=== PATIENT | female | born 1940 | race Caucasian/White ===

== ENCOUNTER 2016-10-12 12:18 | Emergency (ER) | payer MEDICARE ==
[~2016-10-12] VITALS: Ht 165.1 cm; Wt 63.5 kg
[2016-10-12 12:20] VITALS: BP 126/86; PULSE 124; RESP 20; TEMP 97.5; O2SAT 98
--- NOTE | 2016-10-12 12:51 | PD ---
HPI Chief Complaint: Cardiac Complaint Time Seen by Provider: 12:51 Travel History International Travel<30 days: Yes Contact w/Intl Traveler<30days: Yes Name of Country Traveled to: [place], [place], [place] Traveled to known affect area: No History of Present Illness HPI 76 year-old female with history of A. fib, hypethyroidism presents to emergency for evaluation of episodes of lightheadedness. Patient states September 07 2016 she had a pacemaker placed in [place]. She came to [place] September 16. She had an episode where she fell striking her face on the ground on September 21, 2016. She did not get evaluated following the incident. She went on a cruise. She states since then she's been having episodes of lightheadedness. She has blamed it on different things such as not eating breakfast or being dehydrated but today it has been becoming more frequent. There is mild nausea associated with it at times but typically not. She has not been diaphoretic. There is no chest pain. She has no recent illnesses. No other symptoms to report. PFSH Past Medical History Hx Anticoagulant Therapy: Yes Cardiovascular Problems: Yes (NEW PACEMAKER) Respiratory: Yes (ASTHMA) Social History Tobacco Use: No Allergies-Medications (Allergen,Severity, Reaction): Coded Allergies: Cipro (Verified Allergy, Unknown, leg heaviness, 10/12/16) Sulfa (Verified Allergy, Unknown, tunnel kiln operator disturbance, 10/12/16) Reported Meds & Prescriptions Reported Meds & Active Scripts Active Reported Remeron (Mirtazapine) 15 Mg Tab 15 Mg PO HS Eliquis (Apixaban) 5 Mg Tab 5 Mg PO BID Tikosyn (Dofetilide) 500 Mcg Cap 500 Mcg PO BID For Creatinine Clearance >60 mL/min Synthroid (Levothyroxine Sodium) 75 Mcg Tab 75 Mcg PO DAILY Lamictal (Lamotrigine) 25 Mg Tab 50 Mg PO BID Lexapro (Escitalopram Oxalate) 5 Mg Tab 5 Mg PO DAILY Review of Systems Except as stated in HPI: all other systems reviewed are Neg Physical Exam Narrative GENERAL: Well-nourished female patient, ambulatory no acute distress SKIN: Warm and dry. HEAD: Atraumatic. Normocephalic. EYES: Pupils equal and round. No scleral icterus. No injection or drainage. ENT: No nasal bleeding or discharge. Mucous membranes pink and moist. NECK: Trachea midline. No JVD. CARDIOVASCULAR: Elevated irregular rate and rhythm. No murmur appreciated. RESPIRATORY: No accessory muscle use. Clear to auscultation. Breath sounds equal bilaterally. GASTROINTESTINAL: Abdomen soft, non-tender, nondistended. Hepatic and splenic margins not palpable. MUSCULOSKELETAL: No obvious deformities. No clubbing. No cyanosis. No edema. NEUROLOGICAL: Awake and alert. No obvious cranial nerve deficits. Motor grossly within normal limits. Normal speech. PSYCHIATRIC: Appropriate mood and affect; insight and judgment normal. Data Data Last Documented VS Vital Signs Date Time Temp Pulse Resp B/P Pulse Ox O2 Delivery O2 Flow Rate FiO2 10/12/16 12:20 97.5 124 20 126/86 98 Room Air Orders Electrocardiogram (10/12/16 12:49) Complete Blood Count With Diff (10/12/16 12:49) Comprehensive Metabolic Panel (10/12/16 12:49) Magnesium (Mg) (10/12/16 12:49) Prothrombin Time / Inr (Pt) (10/12/16 12:49) Act Partial Throm Time (Ptt) (10/12/16 12:49) Troponin I (10/12/16 12:49) Chest, Single Ap (10/12/16 12:49) Ct Brain W/O Iv Contrast(Rout) (10/12/16 ) Labs Laboratory Tests Test 10/12/16 13:05 White Blood Count 6.2 TH/MM3 Red Blood Count 4.43 MIL/MM3 Hemoglobin 13.2 GM/DL Hematocrit 38.2 % Mean Corpuscular Volume 86.3 FL Mean Corpuscular Hemoglobin 29.9 PG Mean Corpuscular Hemoglobin 34.6 % Concent Red Cell Distribution Width 13.4 % Platelet Count 201 TH/MM3 Mean Platelet Volume 9.9 FL Neutrophils (%) (Auto) 61.5 % Lymphocytes (%) (Auto) 27.7 % Monocytes (%) (Auto) 8.5 % Eosinophils (%) (Auto) 1.7 % Basophils (%) (Auto) 0.6 % Neutrophils # (Auto) 3.8 TH/MM3 Lymphocytes # (Auto) 1.7 TH/MM3 Monocytes # (Auto) 0.5 TH/MM3 Eosinophils # (Auto) 0.1 TH/MM3 Basophils # (Auto) 0.0 TH/MM3 CBC Comment DIFF FINAL Differential Comment Prothrombin Time 11.0 SEC Prothromb Time International 1.0 RATIO Ratio Activated Partial 28.9 SEC Thromboplast Time Sodium Level 134 MEQ/L Potassium Level 3.7 MEQ/L Chloride Level 96 MEQ/L Carbon Dioxide Level 28.1 MEQ/L Anion Gap 10 MEQ/L Blood Urea Nitrogen 16 MG/DL Creatinine 0.61 MG/DL Estimat Glomerular Filtration 96 ML/MIN Rate Random Glucose 153 MG/DL Calcium Level 8.9 MG/DL Magnesium Level 1.8 MG/DL Total Bilirubin 0.5 MG/DL Aspartate Amino Transf 16 U/L (AST/SGOT) Alanine Aminotransferase 21 U/L (ALT/SGPT) Alkaline Phosphatase 60 U/L Troponin I LESS THAN 0.02 NG/ML Total Protein 7.0 GM/DL Albumin 3.7 GM/DL [facility] Medical Decision Making Medical Screen Exam Complete: Yes Emergency Medical Condition: Yes Medical Record Reviewed: Yes Differential Diagnosis Syncope versus near-syncope versus electrolyte abnormality versus ACS versus intracranial hemorrhage Narrative Course 76 year-old female presents to emergency department for evaluation. Workup initiated in triage. Once a medical bed becomes available, patient will be transferred and care assumed by that provider. Condition: Stable DerickClDeisylou PINEDA Oct 12, 2016 12:51
--- NOTE | 2016-10-12 13:24 | RADRPT ---
EXAM DATE/TIME: 10/12/2016 13:10 [facility] COMPARISON: No previous studies available for comparison. INDICATIONS : Syncopal episode with dizziness and nausea. RADIATION DOSE: 37.04 CTDIvol (mGy) MEDICAL HISTORY : Cardiovascular disease. SURGICAL HISTORY : Pacemaker. ENCOUNTER: Initial ACUITY: 1 day PAIN SCALE: 0/10 LOCATION: cranial TECHNIQUE: Multiple contiguous axial images were obtained of the head. Using automated exposure control and adj ustment of the mA and/or kV according to patient size, radiation dose was kept as low as reasonably a chievable to obtain optimal diagnostic quality images. FINDINGS: CEREBRUM: The ventricles are normal for age. Minimal areas of low-attenuation are seen in white matter. No gabriela dence of midline shift, mass lesion, hemorrhage or acute infarction. No extra-axial fluid collection s are seen. POSTERIOR FOSSA: The cerebellum and brainstem are intact. The 4th ventricle is midline. The cerebellopontine angle i s unremarkable. EXTRACRANIAL: The visualized portion of the orbits is intact. SKULL: The calvaria is intact. No evidence of skull fracture. CONCLUSION: 1. Minimal nonspecific white matter changes. 2. No acute intracranial abnormality. Kannan Payton MD on October 12, 2016 at 13:19 Board Certified Radiologist. This report was verified electronically.
[2016-10-12 13:30] LABS: AUTOMATED NEUTROPHIL # 3.8 TH/MM3 (1.8-7.7); BASOPHIL % 0.6 % (0.0-2.0); EOSINOPHIL # 0.1 TH/MM3 (0-0.4); EOSINOPHIL % 1.7 % (0.0-4.0); HEMATOCRIT 38.2 % (35.0-46.0); HEMO FLAGS DIFF FINAL; LYMPH % 27.7 % (9.0-44.0); LYMPHOCYTE # 1.7 TH/MM3 (1.0-4.8); MEAN CELL VOLUME 86.3 FL (80.0-100.0); MEAN CORPUSCULAR HEMOGLOBIN 29.9 PG (27.0-34.0); MEAN CORPUSCULAR HGB CONC 34.6 % (32.0-36.0); MONO % 8.5 % (0.0-8.0); NEUT % 61.5 % (16.0-70.0); PLATELET COUNT 201 TH/MM3 (150-450); RED BLOOD COUNT 4.43 MIL/MM3 (4.00-5.30); RED CELL DISTRIBUTION WIDTH 13.4 % (11.6-17.2); WHITE BLOOD COUNT 6.2 TH/MM3 (4.0-11.0)
[2016-10-12 13:38] LABS: APTT (PATIENT) 28.9 SEC (24.3-30.1)
--- NOTE | 2016-10-12 13:40 | PD ---
Physical Exam Date Seen by Provider: Oct 12, 2016 Time Seen by Provider: 13:37 Narrative The patient is a 76-year-old female who was initially evaluated by the mid- level provider in triage. Please refer to the initial history, physical, diagnostic evaluation, and treatment modality plan. Data Data Last Documented VS Vital Signs Date Time Temp Pulse Resp B/P Pulse Ox O2 Delivery O2 Flow Rate FiO2 10/12/16 14:56 Room Air 10/12/16 12:20 97.5 124 20 126/86 98 Orders Electrocardiogram (10/12/16 12:49) Complete Blood Count With Diff (10/12/16 12:49) Comprehensive Metabolic Panel (10/12/16 12:49) Magnesium (Mg) (10/12/16 12:49) Prothrombin Time / Inr (Pt) (10/12/16 12:49) Act Partial Throm Time (Ptt) (10/12/16 12:49) Troponin I (10/12/16 12:49) Chest, Single Ap (10/12/16 12:49) Ct Brain W/O Iv Contrast(Rout) (10/12/16 ) Sodium Chlorid 0.9% 500 Ml Inj (Ns 500 M (10/12/16 16:45) Metoprolol Tartrate (Lopressor) (10/12/16 16:45) Labs Laboratory Tests Test 10/12/16 13:05 White Blood Count 6.2 TH/MM3 Red Blood Count 4.43 MIL/MM3 Hemoglobin 13.2 GM/DL Hematocrit 38.2 % Mean Corpuscular Volume 86.3 FL Mean Corpuscular Hemoglobin 29.9 PG Mean Corpuscular Hemoglobin 34.6 % Concent Red Cell Distribution Width 13.4 % Platelet Count 201 TH/MM3 Mean Platelet Volume 9.9 FL Neutrophils (%) (Auto) 61.5 % Lymphocytes (%) (Auto) 27.7 % Monocytes (%) (Auto) 8.5 % Eosinophils (%) (Auto) 1.7 % Basophils (%) (Auto) 0.6 % Neutrophils # (Auto) 3.8 TH/MM3 Lymphocytes # (Auto) 1.7 TH/MM3 Monocytes # (Auto) 0.5 TH/MM3 Eosinophils # (Auto) 0.1 TH/MM3 Basophils # (Auto) 0.0 TH/MM3 CBC Comment DIFF FINAL Differential Comment Prothrombin Time 11.0 SEC Prothromb Time International 1.0 RATIO Ratio Activated Partial 28.9 SEC Thromboplast Time Sodium Level 134 MEQ/L Potassium Level 3.7 MEQ/L Chloride Level 96 MEQ/L Carbon Dioxide Level 28.1 MEQ/L Anion Gap 10 MEQ/L Blood Urea Nitrogen 16 MG/DL Creatinine 0.61 MG/DL Estimat Glomerular Filtration 96 ML/MIN Rate Random Glucose 153 MG/DL Calcium Level 8.9 MG/DL Magnesium Level 1.8 MG/DL Total Bilirubin 0.5 MG/DL Aspartate Amino Transf 16 U/L (AST/SGOT) Alanine Aminotransferase 21 U/L (ALT/SGPT) Alkaline Phosphatase 60 U/L Troponin I LESS THAN 0.02 NG/ML Total Protein 7.0 GM/DL Albumin 3.7 GM/DL [facility] Medical Record Reviewed: Yes Supervised Visit with ERNIE: Yes Interpretation(s) EKG reveals atrial paced rhythm at a rate of 60. Last Impressions Chest X-Ray 10/12/16 1249 Signed Impressions: Service Date/Time: Wednesday, October 12, 2016 13:24 - CONCLUSION: No acute disease. Kannan Payton MD Head CT 10/12/16 0000 Signed Impressions: Service Date/Time: Wednesday, October 12, 2016 13:10 - CONCLUSION: 1. Minimal nonspecific white matter changes. 2. No acute intracranial abnormality. Kannan Payton MD Laboratory Tests Test 10/12/16 13:05 White Blood Count 6.2 TH/MM3 Red Blood Count 4.43 MIL/MM3 Hemoglobin 13.2 GM/DL Hematocrit 38.2 % Mean Corpuscular Volume 86.3 FL Mean Corpuscular Hemoglobin 29.9 PG Mean Corpuscular Hemoglobin 34.6 % Concent Red Cell Distribution Width 13.4 % Platelet Count 201 TH/MM3 Mean Platelet Volume 9.9 FL Neutrophils (%) (Auto) 61.5 % Lymphocytes (%) (Auto) 27.7 % Monocytes (%) (Auto) 8.5 % Eosinophils (%) (Auto) 1.7 % Basophils (%) (Auto) 0.6 % Neutrophils # (Auto) 3.8 TH/MM3 Lymphocytes # (Auto) 1.7 TH/MM3 Monocytes # (Auto) 0.5 TH/MM3 Eosinophils # (Auto) 0.1 TH/MM3 Basophils # (Auto) 0.0 TH/MM3 CBC Comment DIFF FINAL Differential Comment Prothrombin Time 11.0 SEC Prothromb Time International 1.0 RATIO Ratio Activated Partial 28.9 SEC Thromboplast Time Sodium Level 134 MEQ/L Potassium Level 3.7 MEQ/L Chloride Level 96 MEQ/L Carbon Dioxide Level 28.1 MEQ/L Anion Gap 10 MEQ/L Blood Urea Nitrogen 16 MG/DL Creatinine 0.61 MG/DL Estimat Glomerular Filtration 96 ML/MIN Rate Random Glucose 153 MG/DL Calcium Level 8.9 MG/DL Magnesium Level 1.8 MG/DL Total Bilirubin 0.5 MG/DL Aspartate Amino Transf 16 U/L (AST/SGOT) Alanine Aminotransferase 21 U/L (ALT/SGPT) Alkaline Phosphatase 60 U/L Troponin I LESS THAN 0.02 NG/ML Total Protein 7.0 GM/DL Albumin 3.7 GM/DL Differential Diagnosis Differential diagnosis includes sick sinus syndrome, atrial fibrillation with RVR, electrolyte abnormality, pulmonary embolism, intracranial hemorrhage, dehydration, anxiety. Narrative Course I, Dr. Bill, have reviewed the advance practice practitioner's documentation and am in agreement, met with the patient face to face, made the diagnosis, and the medical decision making was done by me. *My assessment and Findings: 76-year-old female who is initially evaluated by the mid-level provider, please refer to the initial history, physical, diagnostic evaluation, and treatment modality plan. The patient has a history of what appears to be sick sinus syndrome with episodes of bradycardia and then atrial fibrillation with RVR. The patient recently had a pacemaker placed on September 07, 2016 by her pneumatic deicer inspector in [place]. The patient was advised to see a pneumatic deicer inspector as soon as she arrived in [place]. The patient is scheduled to see Dr. Heart on October 17. However, she said increasing episodes of lightheadedness, dizziness, increasing heart rate over the last several days. The patient feels lightheaded and feels like she is going to "topple over ". The patient is currently taken Tikosyn and Eliquis, also took 2 metoprolol prior to arrival. The patient denies any chest pain or acute shortness of breath. She does complain of mild nausea without any vomiting. The patient's EKG reveals electronic atrial paced rhythm at a rate of 60. Chest x-rays unremarkable. CT the brain is negative for intracranial hemorrhage after a fall several weeks ago. [employer] was called to evaluate the patient's pacemaker. I discussed the patient with Dr. Heart who agrees with metoprolol 12.5 mg twice a day and follow-up in the office. The patient will be provided a copy of her EKG and lab results at discharge. The patient was also given IV fluids and metoprolol orally prior to discharge. Diagnosis Primary Impression: Atrial fibrillation with rapid ventricular response Patient Instructions: General Instructions Additional Instruction: Medications as directed. Follow-up with Dr. Heart as scheduled. Please provide the patient a copy of her EKG and labs at discharge. Return if symptoms worsen or progress. Med/Other Pt SpecificInfo: Prescription(s) given Scripts Metoprolol Tartrate (Lopressor)50 Mg Tab12.5 Mg PO BID #30 TAB Ref 0 Prov:Nacho Bill MD 10/12/16 Disposition: 01 DISCHARGE HOME Condition: Stable Nacho Bill MD Oct 12, 2016 13:40
--- NOTE | 2016-10-12 13:52 | RADRPT ---
EXAM DATE/TIME: 10/12/2016 13:24 [facility] COMPARISON: No previous studies available for comparison. INDICATIONS : Patient felt she was going to pass out this morning. MEDICAL HISTORY : Cardiovascular disease. SURGICAL HISTORY : Pacemaker. ENCOUNTER: Initial ACUITY: 1 day PAIN SCORE: 0/10 LOCATION: chest FINDINGS: A single view of the chest demonstrates diminished lung volumes without evidence of mass, infiltrate or effusion. Left-sided pacemaker with 2 intact leads. The cardiomediastinal contours are unremarkab le. Osseous structures are intact. CONCLUSION: No acute disease. Kannan Payton MD on October 12, 2016 at 13:50 Board Certified Radiologist. This report was verified electronically.
[2016-10-12 13:53] LABS: ALT (GPT) 21 U/L (10-53); ANION GAP 10 MEQ/L (5-15); AST (GOT) 16 U/L (15-37); BICARBONATE 28.1 MEQ/L (21.0-32.0); BLOOD UREA NITROGEN 16 MG/DL (7-18); CHLORIDE 96 MEQ/L (98-107); GLOMERULAR FILTRATION RATE 96 ML/MIN (>89); MAGNESIUM 1.8 MG/DL (1.5-2.5); POTASSIUM 3.7 MEQ/L (3.5-5.1); SODIUM (NA) 134 MEQ/L (136-145)
[2016-10-12 13:56] LABS: ALKALINE PHOSPHATASE 60 U/L (45-117); TOTAL BILIRUBIN ADULT 0.5 MG/DL (0.2-1.0)
[2016-10-12] MEDS ORDERED: REME15TA PO (14:03)
[2016-10-12] MEDS ORDERED: LEVO.075 PO (14:03)
[2016-10-12] MEDS ORDERED: DOFE500 PO (14:03)
[2016-10-12] MEDS ORDERED: LEXA5TAB PO (14:03)
[2016-10-12] MEDS ORDERED: LAMO25 PO (14:03)
[2016-10-12] MEDS ORDERED: APIX5TAB PO (14:03)
[2016-10-12] MEDS ORDERED: SODIUM CHLORID 0.9% 500 ML INJ 500 ML IV ONE (16:45)
[2016-10-12] MEDS ORDERED: METOPROLOL TARTRATE 25 MG TAB PO ONE (16:45)
[2016-10-12] MEDS ORDERED: METO-309 PO (16:47)
--- NOTE | 2016-10-13 18:16 | EKG ---
Date Performed: 10/12/2016 Time Performed: 13:46:33 PTAGE: 76 years EKG: ELECTRONIC ATRIAL PACEMAKER ABNORMAL RHYTHM ECG NO PREVIOUS TRACING DOCTOR: Alex Dow Interpretating Date/Time 10/13/2016 18:12:50
== END 2016-10-12 17:56 | disposition home or self-care (01) ==
LOC: NEPA 12:18
DX: I48.91 Unspecified atrial fibrillation (principal); E05.90 Thyrotoxicosis, unspecified without thyrotoxic crisis or storm; Z95.0 Presence of cardiac pacemaker; Z79.01 Long term (current) use of anticoagulants
CPT/HCPCS: 70450; 71010; 80053; 83735; 84484; 85025; 85610; 85730; 93005; 99284; J7040

== ENCOUNTER → 2016-11-07 | Outpatient (CLI) | payer MEDICARE ==
[~2016-11-07] MED LIST: APIX5TAB PO; DOFE500 PO; LAMO25 PO; LEVO.075 PO; LEXA5TAB PO; METO-309 PO; REME15TA PO
[2016-11-07 14:01] LABS: AUTOMATED NEUTROPHIL # 3.4 TH/MM3 (1.8-7.7); BASOPHIL # 0.1 TH/MM3 (0-0.2); BASOPHIL % 1.1 % (0.0-2.0); EOSINOPHIL # 0.2 TH/MM3 (0-0.4); EOSINOPHIL % 3.3 % (0.0-4.0); HEMATOCRIT 37.5 % (35.0-46.0); HEMO FLAGS DIFF FINAL; LYMPH % 29.6 % (9.0-44.0); LYMPHOCYTE # 1.8 TH/MM3 (1.0-4.8); MEAN CELL VOLUME 86.3 FL (80.0-100.0); MEAN CORPUSCULAR HEMOGLOBIN 28.3 PG (27.0-34.0); MEAN CORPUSCULAR HGB CONC 32.8 % (32.0-36.0); MONO % 8.2 % (0.0-8.0); NEUT % 57.8 % (16.0-70.0); PLATELET COUNT 215 TH/MM3 (150-450); RED BLOOD COUNT 4.35 MIL/MM3 (4.00-5.30); RED CELL DISTRIBUTION WIDTH 13.9 % (11.6-17.2); WHITE BLOOD COUNT 5.9 TH/MM3 (4.0-11.0)
[2016-11-07 14:08] LABS: PROTHROMBIN TIME - PATIENT 11.3 SEC (9.8-11.6)
[2016-11-07 14:18] LABS: BICARBONATE 30.2 MEQ/L (21.0-32.0); POTASSIUM 3.9 MEQ/L (3.5-5.1)
== END ==
LOC: CLAB 13:25
DX: Z79.899 Other long term (current) drug therapy (principal)
CPT/HCPCS: 36415; 80048; 85025; 85610

== ENCOUNTER 2017-09-23 11:07 | Emergency (ER) | payer MEDICARE ==
[2017-09-23 11:10] VITALS: BP 109/68; PULSE 68; RESP 14; TEMP 97.6; O2SAT 98
--- NOTE | 2017-09-23 11:57 | PD ---
HPI Chief Complaint: Cardiac Complaint Time Seen by Provider: 11:42 Travel History International Travel<30 days: No Contact w/Intl Traveler<30days: No Traveled to known affect area: No History of Present Illness HPI 37-year-old female with history of A. fib status post ablation (11/2016) on Eliquis presents emergency department complaining of a "heart fluttering" that started while she was sitting this morning and her vanity. Patient states that she felt a fluttering in her left chest that lasted approximately 10 seconds and went away. States that it recurred several times afterwards. States that she has had multiple episodes since then is becoming stronger each time. Patient is able to tell me how many of so she is actually had. Says that she does have a [employer] pacemaker that was placed in December 2016. Patient went to voodoo and then decided to come to the emergency department today. Currently, patient denies chest pain or shortness of breath. Denies nausea or vomiting. States she does have a history of A. fib status post ablation that has been successful as of November 2016. Patient denies any other problems since then. States that she recently drove down from [place] as she lives in this area for part of the year. Her gravel roofer is Dr. Heart. [facility] Past Medical History Hx Anticoagulant Therapy: Yes (ELOQUIS) Atrial Fibrillation: Yes Anxiety: Yes Depression: Yes Heart Rhythm Problems: Yes Cardiovascular Problems: Yes Diminished Hearing: No Respiratory: Yes (ASTHMA) Immunizations Current: No Menopausal: Yes Dilation and Curettage (D&C): Yes Tubal Ligation: Yes Past Surgical History Appendectomy: Yes Cardiac Surgery: Yes (PACEMAKER - 09/07/2016) Gynecologic Surgery: Yes Hysterectomy: Yes Tonsillectomy: Yes Other Surgery: Yes (VEIN STRIPPING R LEG ) Social History Alcohol Use: Yes Tobacco Use: No Substance Use: No Allergies-Medications (Allergen,Severity, Reaction): Coded Allergies: Sulfa (Sulfonamide Antibiotics) (Unverified Allergy, Unknown, computer drafter disturbance, 09/23/17) ciprofloxacin (Unverified Allergy, Unknown, leg heaviness, 09/23/17) Reported Meds & Prescriptions Reported Meds & Active Scripts Active Reported Remeron (Mirtazapine) 15 Mg Tab 15 Mg PO HS Eliquis (Apixaban) 5 Mg Tab 5 Mg PO BID Synthroid (Levothyroxine Sodium) 75 Mcg Tab 75 Mcg PO DAILY Lamictal (Lamotrigine) 25 Mg Tab 50 Mg PO BID Lexapro (Escitalopram Oxalate) 5 Mg Tab 5 Mg PO DAILY Review of Systems Except as stated in HPI: all other systems reviewed are Neg Physical Exam Narrative GENERAL: Well-developed well-nourished in no apparent distress SKIN: Focused skin assessment warm/dry. HEAD: Atraumatic. Normocephalic. EYES: Pupils equal and round. No scleral icterus. No injection or drainage. ENT: No nasal bleeding or discharge. Mucous membranes pink and moist. NECK: Trachea midline. No JVD. CARDIOVASCULAR: Regular rate and rhythm. No murmur appreciated. RESPIRATORY: No accessory muscle use. Clear to auscultation. Breath sounds equal bilaterally. GASTROINTESTINAL: Abdomen soft, non-tender, nondistended. Hepatic and splenic margins not palpable. MUSCULOSKELETAL: No obvious deformities. No clubbing. No cyanosis. No pedal edema, Homans sign negative bilaterally NEUROLOGICAL: Awake and alert. No obvious cranial nerve deficits. Motor grossly within normal limits. Normal speech. PSYCHIATRIC: Appropriate mood and affect; insight and judgment normal. Data Data Last Documented VS Vital Signs Date Time Temp Pulse Resp B/P (MAP) Pulse Ox O2 Delivery O2 Flow Rate FiO2 09/23/17 14:52 09/23/17 11:46 64 18 100 Room Air 09/23/17 11:10 97.6 Orders Orders Electrocardiogram (09/23/17 11:52) Complete Blood Count With Diff (09/23/17 11:52) Comprehensive Metabolic Panel (09/23/17 11:52) Magnesium (Mg) (09/23/17 11:52) Prothrombin Time / Inr (Pt) (09/23/17 11:52) Act Partial Throm Time (Ptt) (09/23/17 11:52) Troponin I (09/23/17 11:52) Chest, Single Ap (09/23/17 11:52) Ecg Monitoring (09/23/17 11:52) Iv Access Insert/Monitor (09/23/17 11:52) Oximetry (09/23/17 11:52) Sodium Chlorid 0.9% 500 Ml Inj (Ns 500 M (09/23/17 12:00) Ed Discharge Order (09/23/17 14:08) Labs Laboratory Tests Test 09/23/17 12:00 White Blood Count 5.4 TH/MM3 Red Blood Count 4.12 MIL/MM3 Hemoglobin 12.5 GM/DL Hematocrit 36.9 % Mean Corpuscular Volume 89.4 FL Mean Corpuscular Hemoglobin 30.3 PG Mean Corpuscular Hemoglobin Concent 33.9 % Red Cell Distribution Width 12.8 % Platelet Count 188 TH/MM3 Mean Platelet Volume 9.9 FL Neutrophils (%) (Auto) 54.7 % Lymphocytes (%) (Auto) 28.6 % Monocytes (%) (Auto) 10.6 % Eosinophils (%) (Auto) 5.2 % Basophils (%) (Auto) 0.9 % Neutrophils # (Auto) 2.9 TH/MM3 Lymphocytes # (Auto) 1.5 TH/MM3 Monocytes # (Auto) 0.6 TH/MM3 Eosinophils # (Auto) 0.3 TH/MM3 Basophils # (Auto) 0.0 TH/MM3 CBC Comment DIFF FINAL Differential Comment Prothrombin Time 10.8 SEC Prothromb Time International Ratio 1.1 RATIO Activated Partial Thromboplast Time 28.7 SEC Blood Urea Nitrogen 23 MG/DL Creatinine 0.70 MG/DL Random Glucose 82 MG/DL Total Protein 6.5 GM/DL Albumin 3.5 GM/DL Calcium Level 8.6 MG/DL Magnesium Level 1.7 MG/DL Alkaline Phosphatase 59 U/L Aspartate Amino Transf (AST/SGOT) 18 U/L Alanine Aminotransferase (ALT/SGPT) 17 U/L Total Bilirubin 0.4 MG/DL Sodium Level 133 MEQ/L Potassium Level 4.1 MEQ/L Chloride Level 98 MEQ/L Carbon Dioxide Level 27.9 MEQ/L Anion Gap 7 MEQ/L Estimat Glomerular Filtration Rate 81 ML/MIN Troponin I LESS THAN 0.02 NG/ML MDM Medical Decision Making Medical Screen Exam Complete: Yes Emergency Medical Condition: Yes Differential Diagnosis Atrial fibrillation, STEMI, angina, anxiety Narrative Course 77-year-old female with history of A. fib status post ablation on Eliquis presents emergency department complaining of a "heart fluttering" that started while she was sitting this morning and her vanity. Patient states that she felt a fluttering in her left chest that lasted approximately 10 seconds and went away. States that it recurred afterwards. States that she has had multiple episodes since then is becoming stronger each time. Patient is able to tell me how many of so she is actually had. Says that she does have a [employer] pacemaker that was placed in December 2016. Patient went to voodoo and then decided to come to the emergency department today. Currently, patient denies chest pain or shortness of breath. Denies nausea or vomiting. States she does have a history of A. fib status post ablation that has been successful as of November 2016. Patient denies any other problems since then. States that she recently drove down from [place] as she lives in this area for part of the year. Her gravel roofer is Dr. Heart. Vital signs stable. EKG shows sinus rhythm at 60BPM without STEMI changes, occasional pacemaker spikes Physical exam findings consistent with a pleasant 71-year-old female resting comfortably in bed. Patient had multiple short episodes of the fluttering that she describes during exam, however I had no objective findings of her sensation. CXR without acute process. Cardiac enzymes negative. Labs unremarkable. [employer] called for PM interrogation- they state that the wait would be 6 hours. The rep was present within 30 minutes of this request, however. He states that the PM had no fatal rhythms and bradycardia was present. I discussed with the patient the lab findings and pacemaker interrogation. Pt should follow up with her gravel roofer as discussed. Return for worsening or persistent symptoms. Diagnosis Primary Impression: Intermittent palpitations Referrals: Communication Specialist Additional Instructions: Follow-up with Dr. Heart this week. If your symptoms persist or worsen return to the emergency department. Disposition: 01 DISCHARGE HOME Condition: Stable Bibi Waters Sep 23, 2017 11:57
[2017-09-23] MEDS ORDERED: SODIUM CHLORID 0.9% 500 ML INJ 500 ML IV ONE (12:00)
[2017-09-23 12:34] LABS: AUTOMATED NEUTROPHIL # 2.9 TH/MM3 (1.8-7.7); BASOPHIL % 0.9 % (0.0-2.0); EOSINOPHIL # 0.3 TH/MM3 (0-0.4); EOSINOPHIL % 5.2 % (0.0-4.0); HEMATOCRIT 36.9 % (35.0-46.0); HEMOGLOBIN 12.5 GM/DL (11.6-15.3); LYMPH % 28.6 % (9.0-44.0); LYMPHOCYTE # 1.5 TH/MM3 (1.0-4.8); MEAN CELL VOLUME 89.4 FL (80.0-100.0); MEAN CORPUSCULAR HEMOGLOBIN 30.3 PG (27.0-34.0); MEAN CORPUSCULAR HGB CONC 33.9 % (32.0-36.0); MEAN PLATELET VOLUME 9.9 FL (7.0-11.0); MONO % 10.6 % (0.0-8.0); MONOCYTE # 0.6 TH/MM3 (0-0.9); NEUT % 54.7 % (16.0-70.0); PLATELET COUNT 188 TH/MM3 (150-450); RED BLOOD COUNT 4.12 MIL/MM3 (4.00-5.30); RED CELL DISTRIBUTION WIDTH 12.8 % (11.6-17.2); WHITE BLOOD COUNT 5.4 TH/MM3 (4.0-11.0)
--- NOTE | 2017-09-23 12:44 | RADRPT ---
EXAM DATE/TIME: 09/23/2017 12:19 [facility] COMPARISON: CHEST SINGLE AP, October 12, 2016, 13:24. INDICATIONS : Chest discomfort this morning, allergies, coughing, palpitations MEDICAL HISTORY : Cardiovascular disease. SURGICAL HISTORY : Pacemaker. ENCOUNTER: Initial ACUITY: 1 day PAIN SCORE: 8/10 LOCATION: Bilateral chest FINDINGS: A single view of the chest demonstrates the lungs to be symmetrically aerated without evidence of mas s, infiltrate or effusion. Left-sided pacemaker with 2 intact leads. The cardiomediastinal contours a re unremarkable. Osseous structures are intact. CONCLUSION: No acute disease. Kannan Payton MD on September 23, 2017 at 12:42 Board Certified Radiologist. This report was verified electronically.
[2017-09-23 12:45] LABS: INTERNATIONAL NORMALIZED RATIO 1.1 RATIO; PROTHROMBIN TIME - PATIENT 10.8 SEC (9.8-11.6)
[2017-09-23 12:50] LABS: ALBUMIN 3.5 GM/DL (3.4-5.0); ALT (GPT) 17 U/L (10-53); AST (GOT) 18 U/L (15-37); BICARBONATE 27.9 MEQ/L (21.0-32.0); BLOOD UREA NITROGEN 23 MG/DL (7-18); CALCIUM 8.6 MG/DL (8.5-10.1); CHLORIDE 98 MEQ/L (98-107); GLOMERULAR FILTRATION RATE 81 ML/MIN (>89); GLUCOSE,RANDOM 82 MG/DL (74-106); MAGNESIUM 1.7 MG/DL (1.5-2.5); SODIUM (NA) 133 MEQ/L (136-145)
[2017-09-23 12:55] LABS: ALKALINE PHOSPHATASE 59 U/L (45-117); TOTAL BILIRUBIN ADULT 0.4 MG/DL (0.2-1.0); TOTAL PROTEIN 6.5 GM/DL (6.4-8.2); TROPONIN I LESS THAN 0.02 NG/ML (0.02-0.05)
--- NOTE | 2017-09-25 09:00 | EKG ---
Date Performed: 09/23/2017 Time Performed: 12:06:56 PTAGE: 77 years EKG: Sinus rhythm with demand atrial pacing LOW QRS VOLTAGE IN PRECORDIAL LEADS MINIMAL VOLTAGE CRITERIA FOR LVH, CONS IDER NORMAL VARIANT BORDERLINE ECG PREVIOUS TRACING : 10/12/2016 13.46 Since the prior tracing, there has been no significant fajardo DOCTOR: Jurgen Feng Interpretating Date/Time 09/25/2017 08:59:17
== END 2017-09-23 14:58 | disposition home or self-care (01) ==
LOC: NEPC 11:07
DX: R00.2 Palpitations (principal); R94.31 Abnormal electrocardiogram [ECG] [EKG]; I48.91 Unspecified atrial fibrillation; F32.9 Major depressive disorder, single episode, unspecified; J45.909 Unspecified asthma, uncomplicated; Z95.0 Presence of cardiac pacemaker; Z88.2 Allergy status to sulfonamides; Z88.1 Allergy status to other antibiotic agents; Z79.01 Long term (current) use of anticoagulants
CPT/HCPCS: 71045; 80053; 83735; 84484; 85025; 85610; 85730; 93005; 96360; 99285; J7040